=== PATIENT | female | born 1975 | race African-American/Black ===

== ENCOUNTER 2021-03-07 21:32 | Inpatient (IN) | payer OTHER ==
[~2021-03-07] VITALS: Ht 177.8 cm; Wt 108.4 kg
--- NOTE | ~2021-03-07 | EMS ---
[address] [address] EMS Patient Care Report Name: CHIQUI CAMPA Room #: PRE M.R.#: [id number] Admission: Attend Phys: Discharge: Date of : 77 Report #: [id number] THIS REPORT FOR: //name// Report Transmitted: 03/07/2021 20:50 EMS Care Summary [place], [place]/[facility] Incident [id number] @ 03/07/2021 20:57 Incident Location [address] [place] [id number] Patient CHIQUI CAMPA Female, 45 Years 1975 Patient Address [address] [place] [address] Patient History Seizures, Patient Allergies No known allergies, Patient Medications Dilantin, Chief Complaint POSTICTAL Disposition Transported No Lights/[place] Dispatch Reason Convulsions/Seizure Transported To [facility] Narrative M42 ARRIVES TO FIND 45 Y/O F PT HAVING HAD A WITNESS GRAND MAL SEIZURE LASTING APPROXIMATELY ONE MINUTE. PT IS POSTICTAL AND IS UNABLE TO ANSWER MOST QUESTIONS APPROPRIATELY. ASSESSMENTS AND TRETAMENTS NOTED. [address] [address] EMS Patient Care Report Name: CHIQUI CAMPA Room #: PRE ER M.R.#: [id number] Admission: Attend Phys: Discharge: Date of : 77 Report #: [id number] PT MOVED TO COT VIA EXTREMITY LIFT. PT MOVED TO AMBULANCE. PT TRANSPORTED. M42 ARRIVES AT DESTINATION. PT MOVED TO ROOM IN ED. PT SLIDES FROM COT TO BED IN ROOM. PT CARE TRANSFERRED. M42 RETURNS TO SERVICE. Initial Vitals @21:14P: 125,BP: 156/83, @21:07P: 122,R: 18,BP: 121/56,Pain: 0/10,GCS: 15,Glucose: 114,Revised Trauma: 12, Assessments @21:02MENTAL:Person Oriented,Confused,SKIN:HEENT:LUNG SOUNDS:ABDOMEN:PELVIS//GI:EXTREMITIES:PULSE:NEURO:@21:22MENTAL:Confused,Person Oriented,SKIN:No Abnormalities,HEENT:Head/Face: No Abnormalities,Eyes: No Abnormalities,Neck/Airway: No Abnormalities,LUNG SOUNDS:General: No Abnormalities,Left Upper: No Abnormalities,Right Upper: No Abnormalities,Left Lower: No Abnormalities,Right Lower: No Abnormalities,ABDOMEN:General: No Abnormalities,Left Upper: No Abnormalities,Right Upper: No Abnormalities,Left Lower: No Abnormalities,Right Lower: No Abnormalities,PELVIS//GI:No Abnormalities,EXTREMITIES:Left Arm: No Abnormalities,Right Arm: No Abnormalities,Left Leg: No Abnormalities,Right Leg: No Abnormalities,PULSE:NEURO:No Abnormalities, Impression Seizures Procedures @21:02ALS AssessmentResponse: UnchangedSucceeded@21:10Saline Lock 0cc (20 ga) Site: Antecubital-LeftResponse: UnchangedFailed@21:08Saline Lock 0cc (20 ga) Site: Antecubital-LeftResponse: UnchangedFailed@21:083-Lead ECGResponse: UnchangedSucceeded Timeline 20:53,Call Received 20:53,Dispatch Notified 20:57,Dispatched 20:58,En Route 21:01,On Scene 21:02,At Patient 21:02,ALS Assessment,Response: UnchangedSucceeded, 21:07,BP: 121/56 M,PULSE: 122,RR: 18 R,SPO2: Ox,ETCO2: ,B,PAIN: 0,GCS: 15, 21:08,Saline Lock 0cc 20 ga Site: Antecubital-Left,Response: UnchangedFailed, 21:08,3-Lead ECG,Response: UnchangedSucceeded, 21:10,Saline Lock 0cc 20 ga Site: Antecubital-Left,Response: UnchangedFailed, 21:14,BP: 156/83 M,PULSE: 125,RR: R,SPO2: Ox,ETCO2: ,BG: ,PAIN: ,GCS: , 21:15,[place] [address] EMS Patient Care Report Name: CHIQUI CAMPA Room #: PRE ER M.R.#: [id number] Admission: Attend Phys: Discharge: Date of : 77 Report #: [id number] 21:24,At Destination 21:44,Call Closed Disclaimer v1.1 Copyright 2020 [employer] This EMS Care Summary contains data elements from the applicable legal record (which may be displayed differently). It is designed to provide pertinent information for the following purposes: continuity of care, clinical quality, and state data reporting. The complete legal record is available to ED staff and administrators of the receiving hospital in [facility] Patient Tracker. All data is provided "as is."
[2021-03-07 21:32] VITALS: BP 125/72
[2021-03-08 00:10] LABS: ABSOLUTE NEUTROPHILS 4.1 thou/uL (1.4-8.2); BASOPHILS 1.1 % (0.0-2.0); EOSINOPHILS 0.9 % (0.0-3.0); HEMATOCRIT 36.7 % (37.0-47.0); HEMOGLOBIN 11.4 gm/dL (12.0-15.0); LYMPHOCYTES 16.1 % (24.0-44.0); MCH 26.3 pg (26.0-34.0); MCHC 31.2 g/dL (28.0-37.0); MCV 84.2 fL (80.0-100.0); MONOCYTES 7.5 % (1.0-8.0); PLATELET COUNT 269 thou/uL (150-400); POLYS 74.4 % (36.0-66.0); RBC 4.36 mil/uL (4.20-5.00); RDW 15.2 % (10.5-14.5); WBC 5.5 thou/uL (4.0-11.0)
[2021-03-08 00:19] LABS: ANION GAP 9 mmol/L (7-16); BUN 9 mg/dL (7-18); CALCIUM 8.8 mg/dL (8.5-10.1); CHLORIDE 107 mmol/L (98-107); CO2 23 mmol/L (21-32); GLUCOSE 96 mg/dL (74-106); POTASSIUM 3.9 mmol/L (3.5-5.1); SODIUM 139 mmol/L (136-145)
[2021-03-08] MEDS ORDERED: DILANTIN100 MG PO (00:39)
[2021-03-08 01:50] VITALS: BP 119/66
[2021-03-08 05:33] VITALS: BP 113/65
[2021-03-08 05:58] VITALS: BP 113/65
[2021-03-08 06:26] VITALS: BP 102/60
--- NOTE | 2021-03-08 07:26 | NUR ---
Pt arrived on unit at 0615 via cart accompanied by staff. A/OX3,VSS settled down and oriented to the room. Seizure/fall precautions in place,agrees to call for help. Report given to Hui VALDEZ day shift.
[2021-03-08 07:59] VITALS: BP 119/59
--- NOTE | 2021-03-08 11:32 | EKG ---
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
--- NOTE | 2021-03-08 11:32 | EKG ---
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
[2021-03-08] MEDS ORDERED: PROTONIX40 M2 PO ×2 (13:12→14:33)
[2021-03-08] MEDS ORDERED: DILANTIN-1125 MG/5 M PO ×2 (13:12→14:33)
[2021-03-08 14:23] VITALS: BP 119/59
--- NOTE | 2021-03-08 14:50 | NUR ---
ASSUMED PT CARE AROIUND 0700. PT ARRIVED ON THE FLOOR AROUND 6:15.HAD EPIZODES OF SEIZURE. ALERT X ORIENTED X 4. ONM ROOM AIR. FALL PRECT AND SEIZURE PRECT IN PLACE. IV RT AC/ 125ML OF NS RUNNING. STAND BY ASST. ON REGULAR DIET. SEEN BY THE HOSPITALIST. DISCHARGING TO DAY AFTERNOON. PRESCRIPTIONS RECEIVED AND GIVEN TO PATIENT. DISCHARGE INSTRUCTION GIVEN.
[2021-03-09 00:03] LABS: METAMYELOCYTES 0 %
== END 2021-03-08 15:20 | disposition home or self-care (01) | DRG 101 ==
LOC: ER 21:32 → EROBS 03-08 02:55 → 4W 03-08 06:00
PROVIDERS: Emergency Medicine; ADMIT Hospitalist; ATTEND Hospitalist
DX: G40.909 Epilepsy, unspecified, not intractable, without status epilepticus (principal); Z20.822 Contact with and (suspected) exposure to COVID-19; Z79.899 Other long term (current) drug therapy
CPT/HCPCS: 10040